=== PATIENT | female | born 1985 | race Caucasian/White ===

== ENCOUNTER 2016-10-26 00:23 | Emergency (ER) | payer MEDICAID ==
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
[2016-10-26 01:57] LABS: ABSOLUTE BASOPHILS # (AUTO) 0.1 10^3/uL (0.0-0.2); ABSOLUTE EOSINOPHILS # (AUTO) 0.3 10^3/uL (0.0-0.6); ABSOLUTE LYMPHOCYTES (AUTO) 2.6 10^3/uL (0.5-4.7); ABSOLUTE MONOCYTES (AUTO) 0.4 10^3/uL (0.1-1.4); ABSOLUTE NEUT (AUTO) 5.8 10^3/uL (1.7-8.2); BASOPHILS % (AUTO) 0.7 % (0-2); HEMATOCRIT 40.2 % (36.0-47.0); HEMOGLOBIN 13.7 g/dL (12.0-15.5); HGB HCT DIFFERENCE 0.9; LYMPHOCYTES % (AUTO) 28.7 % (13-45); MEAN CORPUSCULAR HEMOGLOBIN 29.2 pg (27.0-33.4); MEAN CORPUSCULAR HGB CONC 34.2 g/dL (32.0-36.0); MEAN CORPUSCULAR VOLUME 86 fl (80-97); MONOCYTES % (AUTO) 4.3 % (3-13); RED CELL DISTRIBUTION WIDTH 13.6 % (11.5-14.0); SEGMENTED NEUTROPHILS % (AUTO) 63.3 % (42-78); WHITE BLOOD COUNT 9.2 10^3/uL (4.0-10.5)
[2016-10-26 02:02] LABS: ALANINE AMINOTRANSFERASE 17 U/L (9-52); ALBUMIN 4.1 g/dL (3.5-5.0); ALKALINE PHOSPHATASE 45 U/L (38-126); ASPARTATE AMINO TRANSFERASE 13 U/L (14-36); BILIRUBIN,DIRECT 0.3 mg/dL (0.0-0.4); BILIRUBIN,TOTAL 0.4 mg/dL (0.2-1.3); BLOOD UREA NITROGEN 14 mg/dL (7-20); CALCIUM 9.2 mg/dL (8.4-10.2); CARBON DIOXIDE 25 mmol/L (22-30); CHLORIDE 106 mmol/L (98-107); CREATININE RESULT 1.44 mg/dL (0.52-1.25); GLUCOSE 107 mg/dL (75-110); POTASSIUM 3.9 mmol/L (3.6-5.0)
[2016-10-26 02:03] LABS: ANION GAP 12 (5-19); SODIUM 142.8 mmol/L (137-145)
[2016-10-26 02:07] LABS: ALCOHOL < 10 mg/dL (NONE DETECTED)
[2016-10-26 02:10] LABS: APPEARANCE,URINE CLEAR; BILIRUBIN,URINE NEGATIVE (NEGATIVE); GLUCOSE, URINE NEGATIVE (NEGATIVE); KETONES,URINE NEGATIVE (NEGATIVE); LEUKOCYTE ESTERASE,URINE NEGATIVE (NEGATIVE); NITRITE,URINE NEGATIVE (NEGATIVE); PROTEIN,URINE 30 mg/dL (NEGATIVE); URINE SPECIFIC GRAVITY 1.005; UROBILINOGEN,URINE NEGATIVE mg/dL (<2.0)
[2016-10-26 02:30] LABS: URINE METHADONE SCREEN NEGATIVE; URINE OPIATES LOW NEGATIVE; URINE PHENCYCLIDINE SCREEN NEGATIVE
[2016-10-26 02:31] LABS: URINE BARBITURATES SCREEN NEGATIVE
[2016-10-26 03:02] VITALS: BP 146/89
--- NOTE | 2016-10-26 10:08 | EKG REPORT ---
SEVERITY:- OTHERWISE NORMAL ECG - SINUS BRADYCARDIA ATRIAL PREMATURE COMPLEX : Confirmed by: Cecil Rueda MD 26-Oct-2016 10:07:55
== END 2016-10-26 02:59 | disposition home or self-care (01) ==
LOC: ER 00:23
DX: F33.9 Major depressive disorder, recurrent, unspecified (principal)
CPT/HCPCS: 36415; 80053; 80307; 81001; 84703; 85025; 93005; 93010; 99285

== ENCOUNTER → 2016-11-13 | Outpatient (CLI) | payer MEDICAID, OTHER | LOC: WI 10:13 | PROVIDERS: ATTEND Nurse Practitioner Family | DX: N64.4 Mastodynia (principal) | CPT/HCPCS: 76642; G0204; 77066 ==

== ENCOUNTER → 2017-01-17 | Outpatient (CLI) | payer MEDICAID ==
--- NOTE | 2017-01-17 16:04 | RADIOLOGY REPORT (SQ) ---
EXAM DESCRIPTION: U/S RETROPERITON (RENAL/AORTA) COMPLETED DATE/TIME: 01/17/2017 2:55 pm REASON FOR STUDY: CHRONIC KIDNEY DISEASE N18.2 CHRONIC KIDNEY DISEASE, STAGE 2 (MILD) COMPARISON: None. TECHNIQUE: Dynamic and static grayscale images acquired of the kidneys and bladder and recorded on P ACS. Additional selected color Doppler and spectral images recorded. LIMITATIONS: None. FINDINGS: RIGHT KIDNEY: 15.6 cm in length, with diffuse cortical thickening and increased cortical e chogenicity. Adult polycystic kidney disease, with multiple cysts replacing the renal parenchyma. N o solid or suspicious masses. No hydronephrosis. No calcifications. LEFT KIDNEY: 16 cm in length, with diffuse cortical thickening and increased cortical echogenicity. Adult polycystic kidney disease, with multiple cysts replacing the renal parenchyma. No solid or ramos spicious masses. No hydronephrosis. No calcifications. BLADDER: No masses. Decompressed. Bilateral ureteral jets are present OTHER FINDINGS: No other significant finding. IMPRESSION: Adult polycystic kidney disease TECHNICAL DOCUMENTATION: JOB ID: [id number] [employer]- All Rights Reserved
== END ==
LOC: RAD 14:05
PROVIDERS: ATTEND Internal Medicine Nephrology
DX: N18.2 Chronic kidney disease, stage 2 (mild) (principal); Q61.2 Polycystic kidney, adult type
CPT/HCPCS: 76770

== ENCOUNTER → 2017-02-03 | Outpatient (CLI) | payer MEDICAID ==
[2017-02-03 11:59] LABS: APPEARANCE,URINE SLIGHTLY-CLOUDY; BILIRUBIN,URINE NEGATIVE (NEGATIVE); GLUCOSE, URINE NEGATIVE (NEGATIVE); KETONES,URINE NEGATIVE (NEGATIVE); LEUKOCYTE ESTERASE,URINE MODERATE (NEGATIVE); NITRITE,URINE NEGATIVE (NEGATIVE); PROTEIN,URINE 100 mg/dL (NEGATIVE); UROBILINOGEN,URINE NEGATIVE mg/dL (<2.0)
[2017-02-03 12:18] LABS: ANION GAP 13 (5-19); BLOOD UREA NITROGEN 14 mg/dL (7-20); CALCIUM 9.4 mg/dL (8.4-10.2); CARBON DIOXIDE 22 mmol/L (22-30); CHLORIDE 107 mmol/L (98-107); GLUCOSE 105 mg/dL (75-110); POTASSIUM 3.8 mmol/L (3.6-5.0); SODIUM 141.8 mmol/L (137-145)
[2017-02-03 12:35] LABS: URINE CREATININE 160.3 mg/dL (16-327); URINE PROTEIN 94.1 mg/dL (<12)
[2017-02-04 14:09] LABS: URINE PROTEIN 30.7 mg/dL (<12)
[2017-02-04 14:10] LABS: URINE CREATININE 59.7 mg/dL (16-327)
[2017-02-04 14:16] LABS: CREATININE 1.4 mg/dL (0.52-1.25)
[2017-02-05 15:38] LABS: ALBUMIN 3 3.7 g/dL (2.9-4.4); ALPHA-1-GLOBULIN 0.2 g/dL (0.0-0.4); ALPHA-2-GLOBULIN 3 0.8 g/dL (0.4-1.0); GLOBULIN TTL 3.4 g/dL (2.2-3.9); IMMUNOGLOBULIN A 144 mg/dL (87-352); IMMUNOGLOBULIN G 1136 mg/dL (700-1600); IMMUNOGLOBULIN M 146 mg/dL (26-217); MONOCLONAL-SPIKE Not Observed g/dL (Not Observed); PROTEIN TOTAL SERUM 7.1 g/dL (6.0-8.5)
== END ==
LOC: OD 10:18
PROVIDERS: ATTEND Internal Medicine Nephrology
DX: N28.9 Disorder of kidney and ureter, unspecified (principal)
CPT/HCPCS: 36415; 80048; 81001; 82570; 82575; 84156; 86320

== ENCOUNTER → 2017-09-25 | Outpatient (CLI) | payer MEDICAID ==
[2017-09-25 13:41] LABS: ANION GAP 11 (5-19); BLOOD UREA NITROGEN 18 mg/dL (7-20); CALCIUM 9.8 mg/dL (8.4-10.2); CARBON DIOXIDE 25 mmol/L (22-30); CHLORIDE 108 mmol/L (98-107); GLUCOSE 84 mg/dL (75-110); POTASSIUM 4.5 mmol/L (3.6-5.0); SODIUM 143.9 mmol/L (137-145)
[2017-09-26 09:48] LABS: UR PRO/CREAT RATIO RESULT 0.7 mg/mg (0.0-0.2); URINE CREATININE 80.8 mg/dL (16-327); URINE PROTEIN 52.6 mg/dL (<12)
== END ==
LOC: OD 12:05
PROVIDERS: ATTEND Internal Medicine Nephrology
DX: N18.3 Chronic kidney disease, stage 3 (moderate) (principal); R80.9 Proteinuria, unspecified
CPT/HCPCS: 36415; 80048; 82043; 82570; 84156

== ENCOUNTER 2017-11-01 10:57 | Emergency (ER) | payer MEDICAID ==
[2017-11-01 11:06] VITALS: BP 139/110
[2017-11-01] MEDS ORDERED: METHOCARBAMOL 500 MG TABLET PO ONE (11:34)
[2017-11-01] MEDS ORDERED: IBUPROFEN 800 MG TABLET PO ONE (11:34)
--- NOTE | 2017-11-01 11:57 | ER Document Report ---
ED Neck/Back Problem - General Chief Complaint: Neck Problem Stated Complaint: NECK PAIN, SHOULDER AND HEAD PAIN Time Seen by Provider: 11/01/17 11:11 Mode of Arrival: Ambulatory Information source: Patient Notes: 32-year-old female presents to ED for complaint of severe pain to the neck and left shoulder. She states she was moving her neck around and felt a pop on Friday. She states she went to the urgent care they gave her to shot she thinks it was Toradol and Decadron and sent her home with some muscle relaxers states she does not worry about with the medicines are she just tells takes with patellar to take. She states none of this is helping her states that shot only lasted for about 24 hours and the muscle relaxers only numb the skin did not help with her pain. She states she has been doing massages to the area using icy hot and hot and cold plaques. She states a friend had a Percocet 10 and she took half of that and then had to take the other half right away in order to have any relief. She states she has not used any ibuprofen or any anti -inflammatories except for the shot she got the first day. TRAVEL OUTSIDE OF THE [place] IN LAST 30 DAYS: No - HPI Patient complains to provider of: Neck - Left shoulder Where: Home, Indoors Onset: Sudden Timing: Waxing and waning Quality of pain: Sharp Severity: Severe Pain Level: 5 Recent injury: Possibly Associated symptoms: Upper back pain, Other - Neck and left shoulder. denies: Like prior neck/back pain, Motor loss, Numbness/tingling, Radiation to arm, Radiation to chest, Radiation to leg, Sensory loss, Sweaty, Unable to urinate, Lower back pain Exacerbated by: Movement of neck Relieved by: Nothing Similar symptoms previously: Yes Recently seen / treated by doctor: Yes - Related Data Allergies/Adverse Reactions: No Known Allergies Allergy (Verified 11/01/17 10:58) Past Medical History - General Information source: Patient - Social History Smoking Status: Current Every Day Smoker Cigarette use (# per day): Yes - Pack to pack and half Chew tobacco use (# tins/day): No Smoking Education Provided: Yes - 4 minutes Frequency of alcohol use: None Drug Abuse: None Occupation: None Lives with: Spouse/Significant other Family History: Reviewed & Not Pertinent Patient has suicidal ideation: No Patient has homicidal ideation: No - Past Medical History Cardiac Medical History: Reports: Hx Hypertension Pulmonary Medical History: Reports: Hx Bronchitis - possibly EENT Medical History: Reports: None Endocrine Medical History: Reports: Hx Hyperthyroidism Renal/ Medical History: Reports: Other - 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 stage III kidney failure genetic Malignancy Medical History: Reports: None GI Medical History: Reports: None Musculoskeltal Medical History: Denies Hx Arthritis, Reports Hx Musculoskeletal Trauma Skin Medical History: Reports None Psychiatric Medical History: Reports: Hx Anxiety, Hx Bipolar Disorder, Hx Depression Traumatic Medical History: Reports: None Infectious Medical History: Reports: None Past Surgical History: Reports: Hx Section, Hx Neurologic Surgery, Hx Thyroid Surgery - Immunizations Hx Diphtheria, Pertussis, Tetanus Vaccination: Yes - 2007 Review of Systems - Review of Systems Constitutional: No symptoms reported EENT: No symptoms reported Cardiovascular: No symptoms reported Respiratory: No symptoms reported Gastrointestinal: No symptoms reported Genitourinary: No symptoms reported Female Genitourinary: No symptoms reported Musculoskeletal: Muscle pain, Muscle stiffness, Neck pain Skin: No symptoms reported Hematologic/Lymphatic: No symptoms reported Neurological/Psychological: No symptoms reported -: Yes All other systems reviewed and negative Physical Exam - Vital signs Vitals: Temp Pulse Resp BP Pulse Ox 98.5 F 94 16 139/110 H 97 11/01/17 11:04 11/01/17 11:04 11/01/17 11:04 11/01/17 11:04 11/01/17 11:04 Interpretation: Normal - General General appearance: Appears well, Alert - HEENT Head: Normocephalic, Atraumatic Eyes: Normal Pupils: PERRL - Respiratory Respiratory status: No respiratory distress Chest status: Nontender Breath sounds: Normal Chest palpation: Normal - Cardiovascular Rhythm: Regular Heart sounds: Normal auscultation Murmur: No - Abdominal Inspection: Normal Distension: No distension Bowel sounds: Normal Tenderness: Nontender Organomegaly: No organomegaly - Back Back: Normal, Tender - To the neck and left shoulder, Vertebra tenderness - Cervical - Extremities General upper extremity: Normal inspection, Nontender, Normal color, Normal ROM , Normal temperature General lower extremity: Normal inspection, Nontender, Normal color, Normal ROM , Normal temperature, Normal weight bearing. No: Ramos's sign - Neurological Neuro grossly intact: Yes Cognition: Normal Orientation: AAOx4 Dimple Coma Scale Eye Opening: Spontaneous [place] Coma Scale Verbal: Oriented [place] Coma Scale Motor: Obeys Commands [place] Coma Scale Total: 15 Speech: Normal Motor strength normal: LUE, RUE, LLE, RLE Sensory: Normal - Psychological Associated symptoms: Normal affect, Normal mood - Skin Skin Temperature: Warm Skin Moisture: Dry Skin Color: Normal Course - Re-evaluation Re-evalutation: 11/01/17 12:27 X-ray discussed with patient. Patient has full range of motion of her shoulders. She states that her significant other told her not to move her shoulders and arms when her neck hurt and not to move her neck around because it was painful. Reinforced with patient that she needed to do range of motion of the muscles would get stiff and hurt more. Patient was given prescriptions for ibuprofen and Robaxin. She was encouraged to use ice and warm packs and do range of motion for shoulders and neck and to follow-up with orthopedics if it continues to hurt. Patient verbalized understanding and agreement with treatment plan. - Vital Signs Vital signs: Temp Pulse Resp BP Pulse Ox 98.5 F 94 16 139/110 H 97 11/01/17 11:04 11/01/17 11:04 11/01/17 11:04 11/01/17 11:04 11/01/17 11:04 - Diagnostic Test Radiology reviewed: Image reviewed, Reports reviewed Discharge - Discharge Clinical Impression: Cervical muscle strain Qualifiers: Encounter type: initial encounter Qualified Code(s): S16.1XXA - Strain of muscle, fascia and tendon at neck level, initial encounter Shoulder pain, left Qualifiers: Chronicity: acute Qualified Code(s): M25.512 - Pain in left shoulder Condition: Stable Disposition: HOME, SELF-CARE Additional Instructions: NECK INJURY (CERVICAL STRAIN): You have a neck strain. This is an injury to the muscles and ligaments in the neck. There is no evidence of a fracture of the neck bones. Also, no injury to the spinal cord or nerve roots was detected. Usually, stiffness and pain INCREASE for the first 24-48 hours after the injury. The pain will gradually resolve and the neck will become more mobile. Most patients are back at work or school within a few days. Typically, complete healing takes about two or three weeks. The usual initial treatment is rest and cold packs. A neck collar may be placed to keep the muscles of the neck at rest. Antiinflammatory and muscle relaxing medication are often used to reduce the spasm and irritation. You should call the doctor, or go to the hospital, if you develop numbness or weakness in any extremity, problems with your bladder or bowel, or pain radiating down the arms. Exercise Program for the Shoulder Since the shoulder moves in so many directions, the joint attachment is weak. Muscles provide most of the stability to the shoulder. You must exercise your shoulder to prevent painful instability or stiffening. PASSIVE - These may be begun within a few days of the injury. While standing, lean forward, allowing the arm to hang down towards the floor. Move the arm in small circles while slowly twisting your chest towards and away from the hanging arm. Do this for one minute. ACTIVE - These may be performed when the doctor gives permission. Begin with the arms at the sides. Raise the arms forward (shoulder's width apart) until they reach shoulder level. Then slowly swing both arms back until they are aiming straight out away from each other. Then bring them forward again, and finally, lower them to your sides. Repeat 20 to 30 times. As you improve, put weights in your hands for the exercise. Start with one pound, and work up to 10 pounds. Never use more than is comfortable. Athletes may work up to 30 pounds. MUSCLE STRAIN: You have strained a muscle -- torn the fibers within the muscle. This often occurs with strenuous exertion, or during an injury that suddenly stretches the muscle. The seriousness of a strain varies. Some strains heal within days, others cause problems for months. X-rays cannot show a muscle strain. X-rays are taken only if symptoms suggest that a fracture could be present. The usual treatment of a muscle strain is rest and ice packs. Sometimes, a sling, splint, or crutches may be necessary to rest the muscle. The muscle can be used again once pain subsides. Severe strains require a special exercise and stretching program to prevent permanent stiffness and disability. Your doctor will advise you if this will be necessary. Call the doctor immediately if pain or swelling becomes severe, or if numbness or discoloration develop. USE OF TYLENOL (ACETAMINOPHEN): Acetaminophen may be taken for pain relief or fever control. It's much safer than aspirin, offering a wider range of "safe" dosages. It is safe during . Some brand names are Tylenol, Panadol, Datril, Anacin 3, Tempra, and Liquiprin. Acetaminophen can be repeated every four hours. The following are maximum recommended dosages: WEIGHT Dose Drops Elixir Chewable( 80mg) (LBS.) drprs=droppers tsp=teaspoon 6 40 mg 0.4 ml (1/2) 6-11 80 mg 0.8 ml (full) tsp 1 tab 12-16 120 mg 1 1/2 drprs 3/4 tsp 1 1/2 tabs 17-23 160 mg 2 drprs 1 tsp 2 tabs 24-30 240 mg 3 drprs 1 1/2 tsp 3 tabs 30-35 320 mg 2 tsp 4 tabs 36-41 360 mg 2 1/4 tsp 4 1/2 tabs 42-47 400 mg 2 1/2 tsp 5 tabs 48-53 480 mg 3 tsp 6 tabs 54-59 520 mg 3 1/4 tsp 6 1/2 tabs 60-64 560 mg 3 1/2 tsp 7 tabs 65-70 600 mg 3 3/4 tsp 7 1/2 tabs 71-76 640 mg 4 tsp 8 tabs 77-82 720 mg 4 1/2 tsp 9 tabs 83-88 800 mg 5 tsp 10 tabs >89 pounds or adults 650 mg to 900 mg Acetaminophen can be repeated every four hours. Maximum dose not to exceed 4000 mg a day. These maximum recommended dosages are slightly higher than the dosages written on the product container, but these dosages are very safe and below the toxic dosage for acetaminophen. Ibuprofen Ibuprofen is an excellent, safe drug for pain control. In addition, it has potent antiinflammatory effects which are beneficial, especially in the treatment of injuries, arthritis, or tendonitis. It's best to take ibuprofen with food. Persons with ulcer disease or allergy to aspirin should notify their physician of this before taking ibuprofen. Take the medication exactly as prescribed. Don't take additional doses unless instructed to do so by your doctor. If you develop wheezing, shortness of breath, hives, faintness, stomach pain, vomiting, or dark black stools, return for re-evaluation at once. ICE PACKS: Apply ice packs frequently against the painful area. Many different schedules are recommended, such as "20 minutes on, 20 minutes off" or "one hour ice, two hours rest." If you need to work, you may need to go longer between ice treatments. You should plan to have the area ice packed AT LEAST one fourth of the time. The ice should be applied over the wrap, tape, or splint, or over a layer of cloth -- not directly against the skin. Some ice bags have a built-in cloth and can be put directly on the skin. WARM PACKS: After approximately two days, apply gentle heat (such as a heating pad or hot water bottle) for about 20 to 30 minutes about every two hours -- at least four times daily. Warmth and elevation will help you make a more rapid recovery , and will ease the pain considerably. Do not use HOT heat, and never apply heat for longer than 30 minutes. The continuous heat can invisibly damage skin and muscles -- even when no burn is seen on the surface. Damaged muscles can make you MORE sore. MUSCLE RELAXERS: Muscle relaxing medications are usually prescribed for acute muscle spasm or injury to the neck and back. They are often combined with antiinflammatory pain medication for increased relief. You may stop the muscle relaxer when the pain and stiffness have improved. Start the medication again if spasms recur. Muscle relaxers may cause drowsiness, especially with the first dose. Do not operate machinery or drive while under the effects of the medication. Most muscle relaxers last up to 24 hours. Do not combine the medication with alcohol. FOLLOW-UP CARE: If you have been referred to a physician for follow-up care, call the physician s office for an appointment as you were instructed or within the next two days. If you experience worsening or a significant change in your symptoms, notify the physician immediately or return to the Emergency Department at any time for re-evaluation. Prescriptions: Ibuprofen 600 mg PO Q8HP PRN #20 tablet PRN Reason: Methocarbamol [Robaxin 500 mg Tablet] 500 mg PO BID #14 tablet Forms: Elevated Blood Pressure, Smoking Cessation Education Referrals: TIFFANY BULLOCK MD [ACTIVE STAFF] - Follow up as needed
--- NOTE | 2017-11-01 11:58 | RADIOLOGY REPORT (SQ) ---
EXAM DESCRIPTION: CT CERVICAL SPINE WITHOUT COMPLETED DATE/TIME: 11/01/2017 11:50 am REASON FOR STUDY: Popped her neck accidentally and has continued vinod COMPARISON: None. TECHNIQUE: Axial images acquired through the cervical spine without intravenous contrast. Images re viewed with lung, soft tissue and bone windows. Reconstructed coronal and sagittal MPR images review ed. Images stored on PACS. All CT scanners at this facility use dose modulation, iterative reconstruction, and/or weight based d osing when appropriate to reduce radiation dose to as low as reasonably achievable (ALARA). [facility]: Dose Right [facility]: CareDose [facility]: Dose Right [facility]: Teradose 4D [facility]: Smart Popbasic RADIATION DOSE: CT Rad equipment meets quality standard of care and radiation dose reduction techniq ues were employed. CTDIvol: 17.6 mGy. DLP: 380 mGy-cm. mGy. LIMITATIONS: None. FINDINGS: ALIGNMENT: Anatomic. MINERALIZATION: Normal. VERTEBRAL BODIES: No fractures or dislocation. DISCS: No significant disc disease. FACETS, LATERAL MASSES, POSTERIOR ELEMENTS: No fractures. No dislocation. No acute findings. HARDWARE: None in the spine. VISUALIZED RIBS: No fractures. LUNG APICES AND SOFT TISSUES: No significant or acute findings. OTHER: Status post thyroidectomy. IMPRESSION: NO ACUTE OR SIGNIFICANT FINDINGS IN THE CERVICAL SPINE. TECHNICAL DOCUMENTATION: JOB ID: [id number] Quality ID # [id number]: Final reports with documentation of one or more dose reduction techniques (e.g., Au tomated exposure control, adjustment of the mA and/or kV according to patient size, use of iterative reconstruction technique) 2010 [employer]- All Rights Reserved Reading location - IP/workstation name: [email or web address]
== END 2017-11-01 12:58 | disposition home or self-care (01) ==
LOC: ER 10:57
DX: S16.1XXA Strain of muscle, fascia and tendon at neck level, initial encounter (principal); M54.2 Cervicalgia; M25.512 Pain in left shoulder; R51 Headache; M54.6 Pain in thoracic spine; X58.XXXA Exposure to other specified factors, initial encounter; F17.210 Nicotine dependence, cigarettes, uncomplicated; I10 Essential (primary) hypertension
CPT/HCPCS: 99406; 99283; 72125; J3490 ×2

== ENCOUNTER → 2017-11-10 | Outpatient (CLI) | payer MEDICAID ==
[2017-11-10 14:46] LABS: ANION GAP 13 (5-19); BLOOD UREA NITROGEN 11 mg/dL (7-20); CALCIUM 9.5 mg/dL (8.4-10.2); CARBON DIOXIDE 23 mmol/L (22-30); CHLORIDE 107 mmol/L (98-107); GLUCOSE 92 mg/dL (75-110); SODIUM 143.2 mmol/L (137-145)
[2017-11-12 16:46] LABS: UR PRO/CREAT RATIO RESULT 0.5 mg/mg (0.0-0.2); URINE CREATININE 76.6 mg/dL (16-327); URINE PROTEIN 40.1 mg/dL (<12)
== END ==
LOC: OD 13:30
PROVIDERS: ATTEND Internal Medicine Nephrology
DX: N18.3 Chronic kidney disease, stage 3 (moderate) (principal); R80.9 Proteinuria, unspecified
CPT/HCPCS: 36415; 80048; 82570; 84156

== ENCOUNTER → 2018-01-05 | Outpatient (CLI) | payer MEDICAID ==
[2018-01-05 15:07] LABS: UR PRO/CREAT RATIO RESULT 0.7 mg/mg (0.0-0.2); URINE CREATININE 81.5 mg/dL (16-327); URINE PROTEIN 57.1 mg/dL (<12)
[2018-01-05 15:20] LABS: ANION GAP 9 (5-19); BLOOD UREA NITROGEN 14 mg/dL (7-20); CALCIUM 9.5 mg/dL (8.4-10.2); CARBON DIOXIDE 27 mmol/L (22-30); CHLORIDE 108 mmol/L (98-107); GLUCOSE 70 mg/dL (75-110); POTASSIUM 4.3 mmol/L (3.6-5.0); SODIUM 144.2 mmol/L (137-145)
== END ==
LOC: OD 13:40
PROVIDERS: ATTEND Internal Medicine Nephrology
DX: N18.3 Chronic kidney disease, stage 3 (moderate) (principal); R80.9 Proteinuria, unspecified
CPT/HCPCS: 36415; 80048; 82570; 84156

== ENCOUNTER → 2018-02-18 | Outpatient (CLI) | payer MEDICAID ==
--- NOTE | 2018-02-18 14:18 | RADIOLOGY REPORT (SQ) ---
EXAM DESCRIPTION: CHEST PA/LATERAL COMPLETED DATE/TIME: 02/18/2018 2:10 pm REASON FOR STUDY: COUGH COMPARISON: 03/03/2009. EXAM PARAMETERS: NUMBER OF VIEWS: two views TECHNIQUE: Digital Frontal and Lateral radiographic views of the chest acquired. RADIATION DOSE: NA LIMITATIONS: none FINDINGS: LUNGS AND PLEURA: No opacities, masses or pneumothorax. No pleural effusion. MEDIASTINUM AND HILAR STRUCTURES: No masses or contour abnormalities. HEART AND VASCULAR STRUCTURES: Heart normal size. No evidence for failure. BONES: No acute findings. HARDWARE: None in the chest. OTHER: No other significant finding. IMPRESSION: NO SIGNIFICANT RADIOGRAPHIC FINDING IN THE CHEST. TECHNICAL DOCUMENTATION: JOB ID: [id number] [email or web address]- All Rights Reserved Reading location - IP/workstation name: [email or web address]
== END ==
LOC: OD 14:01
PROVIDERS: ATTEND Nurse Practitioner Family
DX: R05 Cough (principal)
CPT/HCPCS: 71046

== ENCOUNTER → 2018-04-08 | Outpatient (CLI) | payer MEDICAID ==
[2018-04-08 12:39] LABS: ABSOLUTE EOSINOPHILS # (AUTO) 0.2 10^3/uL (0.0-0.6); ABSOLUTE LYMPHOCYTES (AUTO) 2.1 10^3/uL (0.5-4.7); ABSOLUTE MONOCYTES (AUTO) 0.4 10^3/uL (0.1-1.4); ABSOLUTE NEUT (AUTO) 5.2 10^3/uL (1.7-8.2); BASOPHILS % (AUTO) 0.6 % (0-2); EOSINOPHILS % (AUTO) 2.3 % (0-6); HEMATOCRIT 39.9 % (36.0-47.0); HEMOGLOBIN 13.8 g/dL (12.0-15.5); LYMPHOCYTES % (AUTO) 26.5 % (13-45); MEAN CORPUSCULAR HEMOGLOBIN 29.2 pg (27.0-33.4); MEAN CORPUSCULAR HGB CONC 34.6 g/dL (32.0-36.0); MEAN CORPUSCULAR VOLUME 84 fl (80-97); MONOCYTES % (AUTO) 5.2 % (3-13); PLATELET COUNT 180 10^3/uL (150-450); RED BLOOD COUNT 4.73 10^6/uL (3.72-5.28); RED CELL DISTRIBUTION WIDTH 13.8 % (11.5-14.0); SEGMENTED NEUTROPHILS % (AUTO) 65.4 % (42-78); TOTAL CELLS COUNTED % (AUTO) 100 %; WHITE BLOOD COUNT 7.9 10^3/uL (4.0-10.5)
[2018-04-08 12:50] LABS: APPEARANCE,URINE SLIGHTLY-CLOUDY; BILIRUBIN,URINE NEGATIVE (NEGATIVE); COLOR,URINE STRAW; GLUCOSE, URINE NEGATIVE (NEGATIVE); KETONES,URINE NEGATIVE (NEGATIVE); LEUKOCYTE ESTERASE,URINE NEGATIVE (NEGATIVE); NITRITE,URINE NEGATIVE (NEGATIVE); PROTEIN,URINE NEGATIVE (NEGATIVE); URINE SPECIFIC GRAVITY 1.004; UROBILINOGEN,URINE NEGATIVE mg/dL (<2.0)
[2018-04-08 13:05] LABS: ALBUMIN 4.2 g/dL (3.5-5.0); ANION GAP 9 (5-19); BLOOD UREA NITROGEN 18 mg/dL (7-20); CALCIUM 9.4 mg/dL (8.4-10.2); CARBON DIOXIDE 24 mmol/L (22-30); CHLORIDE 107 mmol/L (98-107); GLUCOSE 80 mg/dL (75-110); POTASSIUM 4.7 mmol/L (3.6-5.0); SODIUM 139.7 mmol/L (137-145)
[2018-04-08 13:09] LABS: UR PRO/CREAT RATIO RESULT 0.8 mg/mg (0.0-0.2); URINE CREATININE 35.4 mg/dL (16-327)
== END ==
LOC: OD 11:41
PROVIDERS: ATTEND Internal Medicine Nephrology
DX: Q61.2 Polycystic kidney, adult type (principal); N18.3 Chronic kidney disease, stage 3 (moderate); R80.9 Proteinuria, unspecified
CPT/HCPCS: 36415; 80048; 81001; 82040; 82306; 82570; 83970; 84156; 85025

== ENCOUNTER → 2018-05-28 | Outpatient (CLI) | payer MEDICAID ==
[2018-05-28 12:38] LABS: APPEARANCE,URINE CLEAR; BILIRUBIN,URINE NEGATIVE (NEGATIVE); COLOR,URINE STRAW; GLUCOSE, URINE NEGATIVE (NEGATIVE); KETONES,URINE NEGATIVE (NEGATIVE); LEUKOCYTE ESTERASE,URINE NEGATIVE (NEGATIVE); NITRITE,URINE NEGATIVE (NEGATIVE); PROTEIN,URINE 30 mg/dL (NEGATIVE); URINE SPECIFIC GRAVITY 1.009; UROBILINOGEN,URINE NEGATIVE mg/dL (<2.0)
[2018-05-28 13:00] LABS: UR PRO/CREAT RATIO RESULT 0.6 mg/mg (0.0-0.2); URINE CREATININE 69.4 mg/dL (16-327); URINE PROTEIN 43.8 mg/dL (<12)
[2018-05-28 13:08] LABS: ANION GAP 12 (5-19); BLOOD UREA NITROGEN 21 mg/dL (7-20); CALCIUM 9.5 mg/dL (8.4-10.2); CARBON DIOXIDE 26 mmol/L (22-30); CHLORIDE 105 mmol/L (98-107); GLUCOSE 85 mg/dL (75-110); PHOSPHORUS 4.5 mg/dL (2.5-4.5); POTASSIUM 4.2 mmol/L (3.6-5.0); SODIUM 143.2 mmol/L (137-145)
== END ==
LOC: OD 12:02
PROVIDERS: ATTEND Internal Medicine Nephrology
DX: N18.3 Chronic kidney disease, stage 3 (moderate) (principal); Q61.2 Polycystic kidney, adult type; E21.3 Hyperparathyroidism, unspecified
CPT/HCPCS: 36415; 80048; 81001; 82570; 83970; 84100; 84156

== ENCOUNTER → 2018-08-25 | Outpatient (CLI) | payer MEDICAID ==
[2018-08-25 13:16] LABS: ANION GAP 12 (5-19); BLOOD UREA NITROGEN 18 mg/dL (7-20); CALCIUM 9.9 mg/dL (8.4-10.2); CARBON DIOXIDE 26 mmol/L (22-30); CHLORIDE 104 mmol/L (98-107); GLUCOSE 88 mg/dL (75-110); POTASSIUM 4.3 mmol/L (3.6-5.0); SODIUM 141.9 mmol/L (137-145)
[2018-08-25 13:24] LABS: UR PRO/CREAT RATIO RESULT 0.7 mg/mg (0.0-0.2); URINE CREATININE 94.1 mg/dL (16-327); URINE PROTEIN 70.4 mg/dL (<12)
== END ==
LOC: OD 12:11
PROVIDERS: ATTEND Internal Medicine Nephrology
DX: I12.9 Hypertensive chronic kidney disease with stage 1 through stage 4 chronic kidney disease, or unspecified chronic kidney disease (principal); N18.3 Chronic kidney disease, stage 3 (moderate)
CPT/HCPCS: 36415; 80048; 82570; 83970; 84156

== ENCOUNTER → 2018-11-23 | Outpatient (CLI) | payer MEDICAID ==
[2018-11-23 12:12] LABS: FREE T4 (FREE THYROXINE) 1.07 ng/dL (0.78-2.19)
[2018-11-23 12:26] LABS: THYROID STIMULATING HORMONE 4.9 uIU/mL (0.47-4.68)
== END ==
LOC: OD 10:47
PROVIDERS: ATTEND Nurse Practitioner Family
DX: E03.9 Hypothyroidism, unspecified (principal)
CPT/HCPCS: 36415; 84439; 84443; 84480

== ENCOUNTER → 2018-12-16 | Outpatient (CLI) | payer MEDICAID ==
[2018-12-16 15:23] LABS: ANION GAP 13 (5-19); BLOOD UREA NITROGEN 16 mg/dL (7-20); CARBON DIOXIDE 22 mmol/L (22-30); CHLORIDE 110 mmol/L (98-107); GLUCOSE 72 mg/dL (75-110); SODIUM 144.8 mmol/L (137-145)
[2018-12-16 15:45] LABS: UR PRO/CREAT RATIO RESULT 0.5 mg/mg (0.0-0.2); URINE CREATININE 132.1 mg/dL (16-327); URINE PROTEIN 62.9 mg/dL (<12)
== END ==
LOC: OD 14:09
PROVIDERS: ATTEND Internal Medicine Nephrology
DX: I12.9 Hypertensive chronic kidney disease with stage 1 through stage 4 chronic kidney disease, or unspecified chronic kidney disease (principal); N18.3 Chronic kidney disease, stage 3 (moderate)
CPT/HCPCS: 36415; 80048; 82570; 84156

== ENCOUNTER → 2019-05-26 | Outpatient (CLI) | payer MEDICAID ==
[2019-05-26 12:42] LABS: ABSOLUTE EOSINOPHILS # (AUTO) 0.2 10^3/uL (0.0-0.6); ABSOLUTE MONOCYTES (AUTO) 0.3 10^3/uL (0.1-1.4); ABSOLUTE NEUT (AUTO) 4.6 10^3/uL (1.7-8.2); BASOPHILS % (AUTO) 0.6 % (0-2); EOSINOPHILS % (AUTO) 3.2 % (0-6); HEMATOCRIT 39.7 % (36.0-47.0); HEMOGLOBIN 13.5 g/dL (12.0-15.5); LYMPHOCYTES % (AUTO) 27.4 % (13-45); MEAN CORPUSCULAR HEMOGLOBIN 28.2 pg (27.0-33.4); MEAN CORPUSCULAR HGB CONC 33.9 g/dL (32.0-36.0); MEAN CORPUSCULAR VOLUME 83 fl (80-97); MONOCYTES % (AUTO) 4.6 % (3-13); PLATELET COUNT 231 10^3/uL (150-450); RED BLOOD COUNT 4.77 10^6/uL (3.72-5.28); RED CELL DISTRIBUTION WIDTH 13.8 % (11.5-14.0); SEGMENTED NEUTROPHILS % (AUTO) 64.2 % (42-78); TOTAL CELLS COUNTED % (AUTO) 100 %; WHITE BLOOD COUNT 7.2 10^3/uL (4.0-10.5)
[2019-05-26 12:52] LABS: APPEARANCE,URINE CLEAR; BILIRUBIN,URINE NEGATIVE (NEGATIVE); COLOR,URINE YELLOW; GLUCOSE, URINE NEGATIVE (NEGATIVE); KETONES,URINE NEGATIVE (NEGATIVE); LEUKOCYTE ESTERASE,URINE NEGATIVE (NEGATIVE); NITRITE,URINE NEGATIVE (NEGATIVE); PROTEIN,URINE NEGATIVE (NEGATIVE); URINE SPECIFIC GRAVITY 1.009; UROBILINOGEN,URINE NEGATIVE mg/dL (<2.0)
[2019-05-26 13:11] LABS: ALBUMIN 4.3 g/dL (3.5-5.0); ALKALINE PHOSPHATASE 48 U/L (38-126); ANION GAP 8 (5-19); ASPARTATE AMINO TRANSFERASE 19 U/L (14-36); BILIRUBIN,DIRECT 0.1 mg/dL (0.0-0.4); BILIRUBIN,TOTAL 0.4 mg/dL (0.2-1.3); BLOOD UREA NITROGEN 17 mg/dL (7-20); CALCIUM 9.6 mg/dL (8.4-10.2); CARBON DIOXIDE 28 mmol/L (22-30); CHLORIDE 102 mmol/L (98-107); GLUCOSE 73 mg/dL (75-110); PHOSPHORUS 4.9 mg/dL (2.5-4.5); POTASSIUM 3.9 mmol/L (3.6-5.0); TOTAL PROTEIN 7.4 g/dL (6.3-8.2)
[2019-05-26 13:16] LABS: UR PRO/CREAT RATIO RESULT 0.3 mg/mg (0.0-0.2); URINE CREATININE 85.6 mg/dL (16-327)
== END ==
LOC: OD 11:52
PROVIDERS: ATTEND Internal Medicine Nephrology
DX: N18.3 Chronic kidney disease, stage 3 (moderate) (principal); Q61.2 Polycystic kidney, adult type; R80.1 Persistent proteinuria, unspecified
CPT/HCPCS: 36415; 80053; 81001; 82306; 82570; 83735; 83970; 84100; 84156; 85025

== ENCOUNTER → 2020-01-07 | Outpatient (CLI) | payer MEDICAID ==
[2020-01-07 14:34] LABS: ABSOLUTE EOSINOPHILS # (AUTO) 0.1 10^3/uL (0.0-0.6); ABSOLUTE LYMPHOCYTES (AUTO) 1.2 10^3/uL (0.5-4.7); ABSOLUTE MONOCYTES (AUTO) 0.3 10^3/uL (0.1-1.4); ABSOLUTE NEUT (AUTO) 4.1 10^3/uL (1.7-8.2); BASOPHILS % (AUTO) 0.8 % (0-2); HEMATOCRIT 36.2 % (36.0-47.0); HEMOGLOBIN 12.6 g/dL (12.0-15.5); LYMPHOCYTES % (AUTO) 21.2 % (13-45); MEAN CORPUSCULAR HEMOGLOBIN 28.6 pg (27.0-33.4); MEAN CORPUSCULAR HGB CONC 34.8 g/dL (32.0-36.0); MEAN CORPUSCULAR VOLUME 82 fl (80-97); MONOCYTES % (AUTO) 5.7 % (3-13); PLATELET COUNT 177 10^3/uL (150-450); RED BLOOD COUNT 4.41 10^6/uL (3.72-5.28); RED CELL DISTRIBUTION WIDTH 14.6 % (11.5-14.0); SEGMENTED NEUTROPHILS % (AUTO) 70.3 % (42-78); TOTAL CELLS COUNTED % (AUTO) 100 %; WHITE BLOOD COUNT 5.8 10^3/uL (4.0-10.5)
[2020-01-07 14:39] LABS: APPEARANCE,URINE CLEAR; BILIRUBIN,URINE NEGATIVE (NEGATIVE); COLOR,URINE YELLOW; GLUCOSE, URINE NEGATIVE (NEGATIVE); KETONES,URINE NEGATIVE (NEGATIVE); LEUKOCYTE ESTERASE,URINE NEGATIVE (NEGATIVE); NITRITE,URINE NEGATIVE (NEGATIVE); PROTEIN,URINE NEGATIVE (NEGATIVE); URINE SPECIFIC GRAVITY 1.008; UROBILINOGEN,URINE NEGATIVE mg/dL (<2.0)
[2020-01-07 14:50] LABS: ALBUMIN 4.2 g/dL (3.5-5.0); ANION GAP 7 (5-19); BLOOD UREA NITROGEN 15 mg/dL (7-20); CALCIUM 9.5 mg/dL (8.4-10.2); CARBON DIOXIDE 24 mmol/L (22-30); CHLORIDE 106 mmol/L (98-107); GLUCOSE 81 mg/dL (75-110); PHOSPHORUS 3.2 mg/dL (2.5-4.5); POTASSIUM 3.7 mmol/L (3.6-5.0)
[2020-01-07 15:08] LABS: UR PRO/CREAT RATIO RESULT 0.3 mg/mg (0.0-0.2); URINE CREATININE 83.7 mg/dL (16-327); URINE PROTEIN 28.3 mg/dL (<12)
== END ==
LOC: OD 14:03
PROVIDERS: ATTEND Internal Medicine Nephrology
DX: I12.9 Hypertensive chronic kidney disease with stage 1 through stage 4 chronic kidney disease, or unspecified chronic kidney disease (principal); N18.3 Chronic kidney disease, stage 3 (moderate); Q61.2 Polycystic kidney, adult type; R80.9 Proteinuria, unspecified
CPT/HCPCS: 36415; 80069; 81001; 82306; 82570; 83970; 84156; 85025

== ENCOUNTER 2020-01-14 11:20 | Emergency (ER) | payer MEDICAID ==
--- NOTE | 2020-01-14 12:53 | ER Document Report ---
ED Medical Screen (RME) - General Stated Complaint: LEFT LEG POSSIBLE INSECT BITE Time Seen by Provider: 01/14/20 12:45 Primary Care Provider: LYRIC RODRIGUEZ MD [Primary Care Provider] - Follow up as needed TRAVEL OUTSIDE OF THE [place] IN LAST 30 DAYS: No - HPI Notes: 01/14/20 12:50 34-year-old female presents emergency room for complaints of pain to her left lower extremity from a bug bite that she sustained proximately 4 days ago. Was seen by her PCP 2 days ago and they placed her on she thinks Bactrim and Keflex, has only had 4 doses of each. Reports pain is 3 out of 5, throbbing sharp and s tabbing while eating cheetos. states she is unable to bear full weight in a wheelchair currently. Worse with time, nothing makes better. denies cp, sob, n/v/d. I have greeted and performed a rapid initial assessment of this patient. A comprehensive ED assessment and evaluation of the patient, analysis of test results and completion of the medical decision making process will be conducted by additional ED providers. PHYSICAL EXAMINATION: NECK: Normal range of motion CV: s1, s2 regular LUNGS: No respiratory distress Musculoskeletal: Normal range of motion NEUROLOGICAL: Normal speech, in wheelchair SKIN: Warm, Dry, normal turgor, no rashes or lesions noted. Left lower extremity with [id number] area of erythema, induration warmth to touch with fluctuance at center to anterior aspect of tibia-fibula. No surrounding erythema, induration or swelling. Cap refill less than 3 seconds, DTR +2 bilateral lower extremities equally - Related Data Allergies/Adverse Reactions: No Known Allergies Allergy (Verified 01/14/20 12:46) Past Medical History - Past Medical History Cardiac Medical History: Reports: Hx Hypertension Denies: Hx Heart Attack Pulmonary Medical History: Reports: Hx Bronchitis - possibly Denies: Hx Asthma, Hx COPD, Hx Pneumonia Neurological Medical History: Denies: Hx Seizures Endocrine Medical History: Reports: Hx Hyperthyroidism Renal/ Medical History: Denies: Hx Peritoneal Dialysis Musculoskeltal Medical History: Denies Hx Arthritis, Reports Hx Musculoskeletal Trauma Psychiatric Medical History: Reports: Hx Anxiety, Hx Bipolar Disorder, Hx Depression Past Surgical History: Reports: Hx Section, Hx Neurologic Surgery, Hx Thyroid Surgery - Immunizations Hx Diphtheria, Pertussis, Tetanus Vaccination: Yes - 2007 Physical Exam - Vital signs Vitals: Temp Pulse Resp BP Pulse Ox 97.7 F 91 14 98/82 L 98 01/14/20 11:28 01/14/20 11:28 01/14/20 11:28 01/14/20 11:28 01/14/20 11:28 Course - Vital Signs Vital signs: Temp Pulse Resp BP Pulse Ox 97.7 F 91 14 98/82 L 98 01/14/20 11:28 01/14/20 11:28 01/14/20 11:28 01/14/20 11:28 01/14/20 11:28 Doctor's Discharge - Discharge Referrals: LYRIC RODRIGUEZ MD [Primary Care Provider] - Follow up as needed
[2020-01-14 13:42] LABS: ABSOLUTE EOSINOPHILS # (AUTO) 0.2 10^3/uL (0.0-0.6); ABSOLUTE LYMPHOCYTES (AUTO) 1.7 10^3/uL (0.5-4.7); ABSOLUTE MONOCYTES (AUTO) 0.4 10^3/uL (0.1-1.4); ABSOLUTE NEUT (AUTO) 6.9 10^3/uL (1.7-8.2); BASOPHILS % (AUTO) 0.5 % (0-2); EOSINOPHILS % (AUTO) 1.9 % (0-6); HEMOGLOBIN 13.3 g/dL (12.0-15.5); LYMPHOCYTES % (AUTO) 18.8 % (13-45); MEAN CORPUSCULAR HEMOGLOBIN 28.5 pg (27.0-33.4); MEAN CORPUSCULAR HGB CONC 34.1 g/dL (32.0-36.0); MEAN CORPUSCULAR VOLUME 84 fl (80-97); MONOCYTES % (AUTO) 4.1 % (3-13); PLATELET COUNT 204 10^3/uL (150-450); RED BLOOD COUNT 4.68 10^6/uL (3.72-5.28); RED CELL DISTRIBUTION WIDTH 14.8 % (11.5-14.0); SEGMENTED NEUTROPHILS % (AUTO) 74.7 % (42-78); TOTAL CELLS COUNTED % (AUTO) 100 %; WHITE BLOOD COUNT 9.3 10^3/uL (4.0-10.5)
[2020-01-14 14:08] LABS: ALBUMIN 4.2 g/dL (3.5-5.0); ALKALINE PHOSPHATASE 49 U/L (38-126); ANION GAP 6 (5-19); ASPARTATE AMINO TRANSFERASE 16 U/L (14-36); BILIRUBIN,TOTAL 0.3 mg/dL (0.2-1.3); BLOOD UREA NITROGEN 13 mg/dL (7-20); CALCIUM 9.4 mg/dL (8.4-10.2); CARBON DIOXIDE 24 mmol/L (22-30); CHLORIDE 107 mmol/L (98-107); GLUCOSE 84 mg/dL (75-110); POTASSIUM 4.3 mmol/L (3.6-5.0); TOTAL PROTEIN 7.3 g/dL (6.3-8.2)
[2020-01-14] MEDS ORDERED: LIDOCAINE 1% INJ-PF (10 MG/ML) 30 ML SDV INJ ONE (14:56)
--- NOTE | 2020-01-14 16:05 | ER Document Report ---
ED General - General Chief Complaint: Leg Pain Stated Complaint: LEFT LEG POSSIBLE INSECT BITE Time Seen by Provider: 01/14/20 12:45 Primary Care Provider: LYRIC RODRIGUEZ MD [ACTIVE STAFF] - Follow up as needed TRAVEL OUTSIDE OF THE [place] IN LAST 30 DAYS: No - HPI Notes: Chief complaint: Redness and swelling left lower leg HPI: 34-year-old female presenting to emergency department for complaints of pain to her left lower extremity from a bug bite that she sustained about 4 days ago. Patient reports she was seen by her PCP 2 days ago and they placed her on oral Bactrim and Keflex. Reports current pain level 8/10. States she is unable to bear full weight due to discomfort. Denies fever, chills, nausea or vomiting. - Related Data Allergies/Adverse Reactions: No Known Allergies Allergy (Verified 01/14/20 12:46) Past Medical History - General Information source: Patient, Friend - Social History Smoking Status: Current Every Day Smoker Chew tobacco use (# tins/day): No Frequency of alcohol use: Rare Drug Abuse: None Family History: Reviewed & Not Pertinent Patient has homicidal ideation: No - Past Medical History Cardiac Medical History: Reports: Hx Hypertension Denies: Hx Heart Attack Pulmonary Medical History: Reports: Hx Bronchitis - possibly Denies: Hx Asthma, Hx COPD, Hx Pneumonia Neurological Medical History: Denies: Hx Seizures Endocrine Medical History: Reports: Hx Hyperthyroidism Renal/ Medical History: Reports: Hx Renal Insufficiency. Denies: Hx Peritoneal Dialysis Musculoskeletal Medical History: Denies Hx Arthritis, Reports Hx Musculoskeletal Trauma Psychiatric Medical History: Reports: Hx Anxiety, Hx Bipolar Disorder, Hx Depression Past Surgical History: Reports: Hx Section, Hx Neurologic Surgery, Hx Thyroid Surgery - Immunizations Hx Diphtheria, Pertussis, Tetanus Vaccination: Yes - 2007 Review of Systems - Review of Systems Notes: Constitutional: Negative for fever. HENT: Negative for sore throat. Eyes: Negative for visual changes. Cardiovascular: Negative for chest pain. Respiratory: Negative for shortness of breath. Gastrointestinal: Negative for abdominal pain, vomiting or diarrhea. Genitourinary: Negative for dysuria. Musculoskeletal: Negative for back pain. Skin: As per HPI. Neurological: Negative for headaches, weakness or numbness. 10 point ROS negative except as marked above and in HPI. Physical Exam - Vital signs Vitals: Temp Pulse Resp BP Pulse Ox 97.7 F 91 14 98/82 L 98 01/14/20 11:28 01/14/20 11:28 01/14/20 11:28 01/14/20 11:28 01/14/20 11:28 - Notes Notes: GENERAL: Female patient approximately stated age appearing moderately uncomfortable. SKIN: Good turgor no rashes. HEAD: Normocephalic atraumatic. EYES: PERRLA. EOMI. Conjunctivae and sclerae clear. EARS: CANALS AND TMS CLEAR. NOSE: CLEAR. MOUTH: Moist mucosa. Good dentition. No stridor or edema. No drooling. NECK: Supple. No masses or thyromegaly. No adenopathy. Carotids 2+ without bruits. No JVD. BACK: Symmetrical without tenderness. CHEST: Respirations unlabored. Breath sounds clear and symmetrical. HEART: Regular rhythm. No murmur gallop or rub. ABDOMEN: Soft nontender without masses, organomegaly or rebound. Bowel sounds normally active. No bruits. GENITALIA: Deferred. EXTREMITIES: 2.5 cm area of fluctuance tenderness erythema and warmth mid pretibial region on the left. No calf tenderness. Cap refill less than 1.5 seconds. Dorsalis pedis and posterior tibial pulses 3+ and symmetrical. NEUROLOGICAL: GCS 15. Alert and oriented x3. Fluent speech. Cranial nerves II through XII intact. Sensorimotor and cerebellar normal. Normal tone. PSYCHIATRIC: Appropriate affect. Course - Vital Signs Vital signs: Temp Pulse Resp BP Pulse Ox 97.7 F 91 14 98/82 L 98 01/14/20 12:46 01/14/20 11:28 01/14/20 11:28 01/14/20 11:28 01/14/20 11:28 - Laboratory Result Diagrams: 01/14/20 13:10 01/14/20 13:10 Laboratory results interpreted by me: 01/14/20 01/14/20 13:10 13:10 RDW 14.8 H Creatinine 1.71 H Est GFR ( Amer) 42 L Est GFR (MDRD) Non-Af 35 L Procedures - Incision and Drainage Left Anterior Leg Time completed: 15:55 Type: Simple Anesthetic type: 1% Lidocaine mL's of anesthetic: 7 Blade size: 11 I&D procedure: Betadine prep applied, Sterile dressing applied Incision Method: Incision made by scalpel Amount/type of drainage: 3 cc yellow purulent material Discharge - Discharge Clinical Impression: Abscess of left lower extremity Condition: Stable Disposition: HOME, SELF-CARE Instructions: Abscess ([facility]) Additional Instructions: Continue current antibiotics. Tramadol as needed for pain. Apply warm towel to area of inflammation on leg for 15 minutes 3 times a day and after each treatment you can dry the area and then apply some Neosporin ointment and a Band-Aid. Follow-up with your primary care physician in 3 to 5 days. Return here as needed for new or worsening symptoms: Pain that is worsening or unimproved Uncontrolled vomiting High fever or shaking chills Overall worsening Prescriptions: Tramadol HCl [Ultram 50 mg Tablet] 50 mg PO Q4HP PRN #12 tab PRN Reason: Referrals: LYRIC RODRIGUEZ MD [ACTIVE STAFF] - Follow up as needed
[2020-01-14 16:26] VITALS: BP 100/84
== END 2020-01-14 16:24 | disposition home or self-care (01) ==
LOC: ER 11:20
DX: L02.416 Cutaneous abscess of left lower limb (principal); S80.862A Insect bite (nonvenomous), left lower leg, initial encounter; W57.XXXA Bitten or stung by nonvenomous insect and other nonvenomous arthropods, initial encounter; F17.200 Nicotine dependence, unspecified, uncomplicated; I10 Essential (primary) hypertension
CPT/HCPCS: 99283; 36415; 85025; 80053; 10060; J3490

== ENCOUNTER → 2020-05-24 | Outpatient (CLI) | payer MEDICAID ==
[2020-05-24 12:42] LABS: CHLAM PCR NOT DETECTED (NOT DETECT)
--- NOTE | 2020-05-24 13:07 | RADIOLOGY REPORT (SQ) ---
EXAM DESCRIPTION: ANKLE RIGHT COMPLETE IMAGES COMPLETED DATE/TIME: 05/24/2020 11:05 am REASON FOR STUDY: PAIN IN RIGHT ANKLE AND JOINTS OF RIGHT FOOT M25.571 PAIN IN RIGHT ANKLE AND JOIN TS OF RIGHT FOOT COMPARISON: None. NUMBER OF VIEWS: Three views. TECHNIQUE: AP, lateral, and oblique radiographic images acquired of the right ankle. LIMITATIONS: None. FINDINGS: MINERALIZATION: Normal. BONES: No acute fracture or dislocation. No worrisome bone lesions. JOINTS: No effusions. SOFT TISSUES: No soft tissue swelling. No foreign body. OTHER: No other significant finding. IMPRESSION: NEGATIVE STUDY OF THE RIGHT ANKLE. NO RADIOGRAPHIC EVIDENCE OF ACUTE INJURY. TECHNICAL DOCUMENTATION: JOB ID: [id number] 2010 [email or web address]- All Rights Reserved Reading location - IP/workstation name: [email or web address]
--- OUTSIDE RECORDS SUMMARY | 2020-05-25 18:29 | XMS REPORT ---
:1985 Author [facility] [place] [address] [place] [address] Care Team Providers Name Role Phone Amaya Madison Attending Clinician Unavailable Nelda Marley Attending Clinician Unavailable Sarah Mason Attending Clinician Unavailable ZENAIDA MCKINNEY Attending Clinician Unavailable Abby So Attending Clinician Unavailable ROX YEBOAH Attending Clinician Unavailable IGNACIO Attending Clinician Unavailable Allergies, Adverse Reactions, Alerts This patient has no known allergies or adverse reactions. Medications Ordered Filled Start Stop Current Ordering Indication Dosage Frequency Signature Comments Components Medication Medication Date Date Medication? Clinician (SIG) Name Name Docusate Yes Esther 100 Twice Per Sodium 100 04-12 Ignacio Morales Day Mg Capsule 00:00: 00 Oxycodone/A Yes Esther 1 Every 4 cetaminophe 04-12 Ignacio Morales Hours as n (Percocet 00:00: needed for 5/325 Mg*) 00 Mild Pain 5 Mg/325 Mg Tab Levothyroxi 2015- No Esther 100 Daily ne Sodium 04-12 Ignacio Morales Before (Synthroid* 00:00: 00:00 Breakfast ) 100 Mcg 00 :00 Tab Calcium 2015- No Esther 1000 Twice Per Carbonate 04-12 Ignacio Morales Day (Tums 00:00: 00:00 ([id number]=[id number] 00 :00 G Yuhaaviatam Calc)*) 500 Mg Chew Propranolol 2015- No 20 Twice Per Hcl 04-12 Day (Inderal*) 00:00: 00:00 20 Mg 00 :00 Tablet, 20 Mg Oral Methimazole 2015- No 20 Once Per (Tapazole*) 04-12 Day 10 Mg Tab, 00:00 20 Mg Oral :00 Problems Condition Condition Condition Status Onset Resolution Last Treatin g Comments Name Details Category Date Date Treatment Clinician Date Graves' Graves Problem Active disease disease 04-12 16:02: 00 Procedures Procedure Date / Time Performed Performing Clinician Devic e OFFICE/OUTPATIENT VISIT EST 2019-07-15 11:00:00 OFFICE/OUTPATIENT VISIT EST 2018 12:30:00 OFFICE/OUTPATIENT VISIT EST 2018-02-16 15:15:00 OFFICE/OUTPATIENT VISIT EST 2017-11-19 16:15:00 OFFICE/OUTPATIENT VISIT EST 2017-08-04 13:45:00 OFFICE/OUTPATIENT VISIT EST 2017-04-07 14:00:00 OFFICE/OUTPATIENT VISIT NEW 2017-03-14 14:45:00 [facility] 2016-04-12 00:00:00 ESTHER GARVIN Results Test Description Test Time Test Comments Text Results Atomic Results Result Comments CHLAMYDIA/N. GONORRHOEAE RNA, TMA, UROGENITAL 2020-03-04 07:08:0 0 Test Item Value Reference Range Comments CHLAMYDIA TRACHOMATIS RNA, TMA, UROGENITAL (test code = NOT DETECTED NOT DETECTED 92331-6) NEISSERIA GONORRHOEAE RNA, TMA, UROGENITAL (test code = NOT DETECTED NOT DETECTED 04671-0) CHLAMYDIA/N. GONORRHOEAE RNA, TMA, [id number] 15:09:00 Test Item Value Reference Range Comments NEISSERIA GONORRHOEAE RNA, TMA, UROGENITAL NOT DETECTED NOT D ETECTED (test code = 60682717) CHLAMYDIA TRACHOMATIS RNA, TMA, UROGENITAL NOT DETECTED NOT D ETECTED (test code = 44376946) RPR (DX) W/REFL TITER AND CONFIRMATORY [id number] 13:43:00NON-REACTIVEHIV 1/2 ANTIGEN/ANTIBODY,FOURTH GENERATION [id number] 13:43:00NON-REACTIVE BV/VAGINITIS PANEL DNA [id number] 13:43:00SEE NOTECHLAMYDIA/N. GONORRHOEAE RNA, TMA, [id number] 13:43:00 Test Item Value Reference Range Comments NEISSERIA GONORRHOEAE RNA, TMA, UROGENITAL NOT DETECTED NOT D ETECTED (test code = 61885473) CHLAMYDIA TRACHOMATIS RNA, TMA, UROGENITAL NOT DETECTED NOT D ETECTED (test code = 27553702) HEPATITIS PANEL, ACUTE W/REFLEX TO [id number] 13:43:00 Test Item Value Reference Range Comments SIGNAL TO CUT-OFF (test code = 54416514) 0.03 <1.00 HEPATITIS B CORE ANTIBODY (IGM) (test code = NON-REACTIVE NON -REACTIVE 22297499) HEPATITIS C ANTIBODY (test code = 13115186) NON-REACTIVE NON- REACTIVE HEPATITIS B SURFACE ANTIGEN (test code = NON-REACTIVE NON-ZARIA CTIVE 5196-1) HEPATITIS A IGM (test code = 10840270) NON-REACTIVE NON-REACT BENNY HIV 1/2 ANTIGEN/ANTIBODY,FOURTH GENERATION [id number] 10:39:00NON-REACTIVE HEPATITIS C AB W/REFL TO HCV RNA, QN, [id number] 10:39:00 Test Item Value Reference Range Comments SIGNAL TO CUT-OFF (test code = 30833689) 0.03 <1.00 HEPATITIS C ANTIBODY (test code = 25338038) NON-REACTIVE NON- REACTIVE CHLAMYDIA/N. GONORRHOEAE RNA, TMA, [id number] 10:39:00 Test Item Value Reference Range Comments CHLAMYDIA TRACHOMATIS RNA, TMA, UROGENITAL NOT DETECTED NOT D ETECTED (test code = 41754582) NEISSERIA GONORRHOEAE RNA, TMA, UROGENITAL NOT DETECTED NOT D ETECTED (test code = 73319926) RPR (DX) W/REFL TITER AND CONFIRMATORY [id number] 10:39:00NON-REACTIVET4, [id number] 15:47:[id number] 15:47:0053.50T3, [id number] 15:47:0063HIV 1/2 ANTIGEN/ANTIBODY,FOURTH GENERATION [id number] 10:25:00 NON-REACTIVERPR (DX) W/REFL TITER AND CONFIRMATORY [id number] 10:25:00 NON-REACTIVEHEPATITIS C AB W/REFL TO HCV RNA, QN, [id number] 10:25:00 Test Item Value Reference Range Comments SIGNAL TO CUT-OFF (test code = 57536322) 0.02 <1.00 HEPATITIS C ANTIBODY (test code = 39741201) NON-REACTIVE NON- REACTIVE BV/VAGINITIS PANEL DNA [id number] 15:51:00SEE NOTETHINPREP TIS PAP AND HPV mRNA E6/E7, CHLAMYDIA/N.[id number] 15:48:00 Test Item Value Reference Range Comments HPV mRNA E6/E7 (test code = Not Detected Not Detected 31473515) SOURCE: (test code = Cervix, Endocervix 66073090) NEISSERIA GONORRHOEAE RNA, NOT DETECTED NOT DETECTED TMA, UROGENITAL (test code = 60248221) INTERPRETATION/RESULT: (test Negative for intraepithelial code = 00416559) lesion or malignancy. CHLAMYDIA TRACHOMATIS RNA, NOT DETECTED NOT DETECTED TMA, UROGENITAL (test code = 59542190) CLINICAL INFORMATION: (test Normal exam code = 44109684) PREV. PAP: (test code = UNKNOWN 27021260) LMP: (test code = 93218111) 20180122 PREV. BX: (test code = UNKNOWN 58634924) ANEMIA PROFILE [id number] 15:14:00 Test Item Value Reference Range Comments ABSOLUTE MONOCYTES (test code = 91471814) 515 cells/uL 200-95 0 FOLATE, SERUM (test code = 79272107) 20.3 ng/mL RETICULOCYTE COUNT, AUTOMATED (test code = 1.0 % 59267148) RED BLOOD CELL COUNT (test code = 4.93 Million/uL 3.80-5.10 48450381) MPV (test code = 66877266) 9.6 fL 7.5-12.5 IRON, TOTAL (test code = 53481015) 137 mcg/dL 40-190 ABSOLUTE LYMPHOCYTES (test code = 2237 cells/uL 850-3900 78132655) EOSINOPHILS (test code = 17994521) 1.9 % VITAMIN B12 (test code = 70356459) 265 pg/mL 200-1100 RDW (test code = 03950023) 13.2 % 11.0-15.0 ABSOLUTE NEUTROPHILS (test code = 7508 cells/uL 6059-8050 20491068) ABSOLUTE BASOPHILS (test code = 74768719) 42 cells/uL 0-200 WHITE BLOOD CELL COUNT (test code = 10.5 Thousand/uL 3.8-10.8 82692996) HEMATOCRIT (test code = 10830330) 42.6 % 35.0-45.0 BASOPHILS (test code = 10129476) 0.4 % MCH (test code = 72924289) 29.0 pg 27.0-33.0 PLATELET COUNT (test code = 80124866) 211 Thousand/uL 140-400 FERRITIN (test code = 90897025) 37 ng/mL 10-154 MCV (test code = 68197065) 86.4 fL 80.0-100.0 HEMOGLOBIN (test code = 06642088) 14.3 g/dL 11.7-15.5 RETICULOCYTE, ABSOLUTE (test code = 23675 cells/uL 25908-08975 64051477) NEUTROPHILS (test code = 84972932) 71.5 % ABSOLUTE EOSINOPHILS (test code = 200 cells/uL 15-500 51656996) MONOCYTES (test code = 95343321) 4.9 % % SATURATION (test code = 24685930) 41 % (calc) 11-50 IRON BINDING CAPACITY (test code = 333 mcg/dL (calc) 250-450 36538472) LYMPHOCYTES (test code = 68371051) 21.3 % MCHC (test code = 16684618) 33.6 g/dL 32.0-36.0 CBC (H/H, RBC, INDICES, WBC, PLT)2017-11-20 08:51:00 Test Item Value Reference Range Comments MCH (test code = 28346530) 28.2 pg 27.0-33.0 PLATELET COUNT (test code = 25617725) 218 Thousand/uL 140-400 RDW (test code = 91322207) 13.4 % 11.0-15.0 WHITE BLOOD CELL COUNT (test code = 8.1 Thousand/uL 3.8-10.8 92305062) MPV (test code = 43793358) 10.2 fL 7.5-12.5 HEMATOCRIT (test code = 31341590) 45.5 % 35.0-45.0 HEMOGLOBIN (test code = 92086291) 14.8 g/dL 11.7-15.5 MCHC (test code = 32640668) 32.5 g/dL 32.0-36.0 RED BLOOD CELL COUNT (test code = 66092155) 5.25 Million/uL 3.80 -5.10 MCV (test code = 31853528) 86.7 fL 80.0-100.0 HEPATIC FUNCTION [id number] 08:51:00 Test Item Value Reference Range Comments PROTEIN, TOTAL (test code = 82089785) 7.2 g/dL 6.1-8.1 GLOBULIN (test code = 70770073) 2.8 g/dL (calc) 1.9-3.7 BILIRUBIN, TOTAL (test code = 61210232) 0.4 mg/dL 0.2-1.2 AST (test code = 98777816) 14 U/L 10-30 ALT (test code = 67684076) 7 U/L 6-29 BILIRUBIN, DIRECT (test code = 53435339) 0.1 mg/dL < OR = 0.2 ALBUMIN/GLOBULIN RATIO (test code = 1.6 (calc) 1.0-2.5 70366608) ALBUMIN (test code = 08109162) 4.4 g/dL 3.6-5.1 BILIRUBIN, INDIRECT (test code = 21918198) 0.3 mg/dL (calc) 0.2- 1.2 ALKALINE PHOSPHATASE (test code = 04762897) 51 U/L 33-1 15 COMPREHENSIVE METABOLIC [id number] 08:51:00 Test Item Value Reference Range Comments GLOBULIN (test code = 00302839) 2.8 g/dL (calc) 1.9-3.7 ALKALINE PHOSPHATASE (test code = 38922030) 51 U/L 33-1 15 BUN/CREATININE RATIO (test code = 23582565) 11 (calc) 6-22 GLUCOSE (test code = 55044129) 82 mg/dL 65-99 PROTEIN, TOTAL (test code = 87366178) 7.2 g/dL 6.1-8.1 eGFR (test code = 52 mL/min/1.73m2 > OR = 60 27194066) ALBUMIN/GLOBULIN RATIO (test code = 1.6 (calc) 1.0-2.5 41902021) ALT (test code = 40055239) 7 U/L 6-29 CREATININE (test code = 63978859) 1.55 mg/dL 0.50-1.10 AST (test code = 45129093) 14 U/L 10-30 UREA NITROGEN (BUN) (test code = 82291556) 17 mg/dL 7-25 CALCIUM (test code = 77409494) 9.3 mg/dL 8.6-10.2 eGFR NON-AFR. CHILEAN (test code = 44 mL/min/1.73m2 > OR = 60 10589728) BILIRUBIN, TOTAL (test code = 94836512) 0.4 mg/dL 0.2-1.2 CARBON DIOXIDE (test code = 38700386) 27 mmol/L 20-31 POTASSIUM (test code = 98977836) 4.6 mmol/L 3.5-5.3 CHLORIDE (test code = 54091729) 107 mmol/L 98-110 SODIUM (test code = 07606706) 139 mmol/L 135-146 ALBUMIN (test code = 60523400) 4.4 g/dL 3.6-5.1 [id number] 14:37:00 Test Item Value Reference Range Comments TSH (test code = 830101) 0.34 mIU/L T3, [id number] 14:37:00 Test Item Value Reference Range Comments T3, Free (test code = 619585) 3.7 pg/mL 2.3-4.2 [id number] 14:37:00 Test Item Value Reference Range Comments LH (test code = 394299) 7.2 mIU/mL Testosterone, Total, LC/MS/[id number] 14:37:00 Test Item Value Reference Range Comments Testosterone, Total, LC-MS-MS (test code = 568589) 18 ng/dL 2-45 T4 Free (FT4)2017-04-07 14:37:00 Test Item Value Reference Range Comments Free T4 (test code = 719168) 0.9 ng/dL 0.8-1.8 FSH (Follicle Stimulating Hormone)2017-04-07 14:37:00 Test Item Value Reference Range Comments FSH (test code = 290297) 9.7 mIU/mL Progesterone, [id number] 14:37:00 Test Item Value Reference Range Comments Progesterone (test code = 890658) 0.9 ng/mL [id number] 14:37:00 Test Item Value Reference Range Comments Estradiol (test code = 401189) 50 pg/mL Serum or plasma calcium measurement (mass/volume)2016-04-13 09:09:00 Test Item Value Reference Range Comments Serum or plasma calcium measurement (mass/volume) 8.3 8.4-10.2 (test code = 57212-4) Phosphorus [id number] 09:09:00 Test Item Value Reference Range Comments Phosphorus measurement (test code = 13373-2) 3.3 2.5 -4.5 Magnesium [id number] 09:09:00 Test Item Value Reference Range Comments Magnesium measurement (test code = 82759-1) 1.7 1.6- 2.3 Serum or plasma albumin measurement (mass/volume)2016-04-12 19:10:00 Test Item Value Reference Range Comments Serum or plasma albumin measurement (mass/volume) 3.1 3.5-5.0 (test code = 1751-7) Serum or plasma urea nitrogen measurement (mass/volume)2016-04-03 14:45:00 Test Item Value Reference Range Comments Serum or plasma urea nitrogen measurement 12 7-17 (mass/volume) (test code = 3094-0) Serum or plasma creatinine measurement (moles/volume)2016-04-03 14:45:00 Test Item Value Reference Range Comments Serum or plasma creatinine measurement (moles/volume) 1.24 0.52-1.04 (test code = 86153-6) Assessments Condition Name Status Diagnosis Date Treating Clinici an Abnormal weight gain Active Hypothyroidism, unspecified Active Disorder of kidney and ureter, unspecified Active Bipolar disorder, unspecified Active Cough Active Acute bronchitis due to other specified Active organisms Oth bacterial agents as the cause of Active diseases classd elswhr Body mass index (BMI) 25.0-25.9, adult Active Encounter for screening for malignant Active neoplasm of cervix Encntr screen for infections w sexl mode of Active transmiss Other specified noninflammatory disorders of Active vagina Body mass index (BMI) 25.0-25.9, adult Active Dermatitis, unspecified Active Nonscarring hair loss, unspecified Active Other fatigue Active Essential (primary) hypertension Active Other forms of stomatitis Active Pruritus, unspecified Active Unspecified strabismus Active Hypothyroidism, unspecified Active Hypothyroidism, unspecified Active Atrophy of breast Active Endocrine disorder, unspecified Active Body mass index (BMI) 26.0-26.9, adult Active Insomnia, unspecified Active Disorder of kidney and ureter, unspecified Active Hypothyroidism, unspecified Active Bipolar disorder, unspecified Active Encounters Start End Encounter Admission Attending Care Care Encounter Date/Time Date/Time Type Type Clinicians Facility Department ID 2019-07-15 2019-07-15 Outpatient Wittler, [facility] E [id number] 11:00:00 11:00:00 Amaya Children [id number] s [id number] and [id number] [facility], 2018 2018 Outpatient Donell [facility] CB [id number] 12:30:00 12:30:00 Nelda Children [id number] s [id number] and [id number] [facility] [place] 2018-02-16 2018-02-16 Outpatient Marlon [facility] 5 [id number] 15:15:00 15:15:00 Stormy Children [id number] s [id number] and [id number] [facility] [place] 2017-11-19 2017-11-19 Outpatient Marlon [facility] 6 [id number] 16:15:00 16:15:00 Stormy Children [id number] s [id number] and [id number] [facility] [place] 2017-08-22 2017-08-22 Outpatient YANELI MCKINNEY, [facility] [id number] 09:50:00 09:50:00 ZENAIDA 93 2017-08-04 2017-08-04 Outpatient Saray [facility] E5 [id number] 13:45:00 13:45:00 Abby Children [id number] s [id number] and [id number] [facility], [place] 2017-04-07 2017-04-07 Outpatient Saray [facility] 05 [id number] 14:00:00 14:00:00 Abby Children [id number] s [id number] and [id number] [facility] [place] 2017-03-14 2017-03-[facility] [id number] 14:45:00 14:45:00 Abby Children [id number] s [id number] and [id number] [facility] [place] 2016-10-18 2016-10-18 Outpatient YANELI YEBOAH, [facility] [id number] 10:55:00 10:55:00 ROX Baig 2016-04-12 2016-04-13 Outpatient IGNACIO [facility] [id number] 00:02:00 12:10:00 ESTHER 26 Immunizations Ordered Immunization Filled Immunization Date Status Commen ts Refusal Reason Name Name Vaccination Unknown Completed Payers Payer Name Policy Type Policy Number Effective Date Expiration D ate Social History This patient has no known social history. Vital Signs Vital Name Observation Time Observation Value Comments WEIGHT 2016-04-12 12:00:00 85.2 kg HEIGHT 2016-04-12 12:00:00 162.446496 cm WEIGHT 2016-04-12 00:02:00 85.2 kg HEIGHT 2016-04-12 00:02:00 162.015109 cm
== END ==
LOC: OD 10:41
PROVIDERS: ATTEND Nurse Practitioner Family
DX: R30.0 Dysuria (principal); M25.571 Pain in right ankle and joints of right foot; Z11.3 Encounter for screening for infections with a predominantly sexual mode of transmission
CPT/HCPCS: 87491; 87591

== ENCOUNTER 2020-07-18 15:11 | Emergency (ER) | payer MEDICAID ==
[2020-07-18 16:54] VITALS: BP 113/87
--- NOTE | 2020-07-18 16:57 | ER Document Report ---
HPI - HPI Time Seen by Provider: 07/18/20 16:45 Pain Level: 3 Notes: 35-year-old female presents to the emergency room today for evaluation of a scar to her right calf from a bug bite over 6 months ago that she says has taken a long time to heal. She denies any fevers or chills. States recently she has been "picking at it", no drainage. Patient never had site lanced or evaluated by a medical provider. She states she has a similar scar on her other leg but that was drained and it is flat now, she is concerned because this keloid is not flat. Patient reports that over 6 months ago she rolled her ankle, she has had follow-up with her primary care provider. She would like to know if she can get a referral to an staffing specialist because she does not want to go back to the primary care due to the Covid pandemic. denies any new trauma. Able to bear full weight. Denies any numbness or tingling down bilateral lower extremities. Denies fevers, chills, chest pain,palpitations, shortness of breath, dyspnea, nausea, vomiting, diarrhea, abdominal pain, hematuria,blurred vision, double vision, loss of vision, speech changes, LH, dizziness, syncope, headaches, wheezing, ST, URI, neck pain, weakness, bowel or bladder dysfunction, saddle anesthesia, numbness or tingling in bilateral upper or lower extremities equally, muscle paralysis, weakness in bilateral upper or lower extremities equally. - CONSTITUTIONAL Constitutional: DENIES: Fever, Chills - REPRODUCTIVE Reproductive: DENIES: : Past Medical History - General Information source: Patient - Social History Smoking Status: Current Every Day Smoker Chew tobacco use (# tins/day): No Frequency of alcohol use: None Drug Abuse: None Family History: Reviewed & Not Pertinent - Past Medical History Cardiac Medical History: Reports: Hx Hypertension Denies: Hx Heart Attack Pulmonary Medical History: Reports: Hx Bronchitis - possibly Denies: Hx Asthma, Hx COPD, Hx Pneumonia Neurological Medical History: Denies: Hx Seizures Endocrine Medical History: Reports: Hx Hyperthyroidism Renal/ Medical History: Reports: Hx Renal Insufficiency. Denies: Hx Peritoneal Dialysis Musculoskeletal Medical History: Denies Hx Arthritis, Reports Hx Musculoskeletal Trauma Psychiatric Medical History: Reports: Hx Anxiety, Hx Bipolar Disorder, Hx Depression Past Surgical History: Reports: Hx Section, Hx Neurologic Surgery, Hx Thyroid Surgery - Immunizations Hx Diphtheria, Pertussis, Tetanus Vaccination: Yes - 2007 Vertical Provider Document - CONSTITUTIONAL Agree With Documented VS: Yes Exam Limitations: No Limitations General Appearance: WD/WN Notes: MEDICATIONS: I agree with the patient medications as charted by the RN. ALLERGIES: I agree with the allergies as charted by the RN. PAST MEDICAL HISTORY/PAST SURGICAL HISTORY: Reviewed and agree as charted by RN. SOCIAL HISTORY: Reviewed and agree as charted by RN. FAMILY HISTORY: No significant familial comorbid conditions directly related to patient complaint EXAM: Reviewed vital signs as charted by RN. PHYSICAL EXAMINATION: reviewed vital signs by RN GENERAL: Well-appearing, well-nourished and in no acute distress. HEAD: Atraumatic, normocephalic. EYES: Pupils equal round and reactive to light, extraocular movements intact, conjunctiva are normal. ENT: Nares patent, oropharynx clear without exudates. Moist mucous membranes. NECK: Normal range of motion, supple without lymphadenopathy LUNGS: Breath sounds clear to auscultation bilaterally and equal. No wheezes rales or rhonchi. HEART: Regular rate and rhythm without murmurs ABDOMEN: Soft, nontender, nondistended abdomen. No guarding, no rebound. No masses appreciated. Female : deferred Musculoskeletal: Normal range of motion, no pitting or edema. No cyanosis. right ankle without swelling, tenderness to ankle. no pain with eversion, inversion. squeeze test negative. dtr +2 BLE. Limited APROM. distal pulses + 2 BLE equally. Full motor and sensory function of bilateral lower extremities. No noted open wounds or abrasion. Normal gait. No vascular compromise. Peroneal nerve is intact with strong eversion and plantar flexion. Negative anterior drawer test. muscle strength 5/5 in BLE equally. NEUROLOGICAL: Cranial nerves grossly intact. Normal speech, normal gait. Normal sensory, motor exams PSYCH: Normal mood, normal affect. SKIN: Warm, Dry, normal turgor, no rashes or lesions noted. - INFECTION CONTROL TRAVEL OUTSIDE OF THE [place] IN LAST 30 DAYS: No Course - Re-evaluation Re-evalutation: 07/18/20 17:09 Afebrile vital stable no distress. Nurses notes reviewed. Discussed with patient that she has a keloid from the bug bite from over 6 months ago, advised her to not pick at it although she has been so I did prescribe her Bactroban ointment to apply 3 times a day for the next few days to prevent infection. Discussed with patient that she does need to have proper shoe inserts, stretching, exercise helps with pain. Discussed having a conversation with her primary care doctor about physical therapy for her ankle as well as I did give patient a referral to staffing specialist for her to follow-up with. All questions and concerns were answered. After performing a Medical Screening Examination, I estimate there is LOW risk for OPEN FRACTURE, COMPARTMENT SYNDROME, DEEP VENOUS THROMBOSIS, ACUTE TENDON RUPTURE, or NEUROVASCULAR INJURY thus I consider the discharge disposition reasonable. I have reevaluated this patient multiple times and no significant life threatening changes are noted. The patient and I have discussed the diagnosis and risks, and we agree with discharging home to closely follow-up with their primary doctor or the referral orthopedist with the understanding that symptoms and presentations can change. We also discussed returning to the Emergency Department immediately if new or worsening symptoms occur. We have discussed the symptoms which are most concerning (e.g., changing or worsening pain, numbness, weakness) that necessitate immediate return - Vital Signs Vital signs: Temp Pulse Resp BP Pulse Ox 97.9 F 104 H 16 118/87 H 100 07/18/20 15:51 07/18/20 15:51 07/18/20 15:51 07/18/20 15:51 07/18/20 15:51 - Laboratory Results Critical Laboratory Results Reviewed: No Critical Results - Radiology Results Critical Radiology Results Reviewed: No Critical Results Discharge - Discharge Clinical Impression: Keloid of skin, Chronic pain of right ankle Condition: Stable Disposition: HOME, SELF-CARE Additional Instructions: You have an keloid from a previous bug bite back in the summer, it can take time to heal. Please keep it out of direct sunlight, wear sunblock when out in the sun, you can apply Bactroban because you have been squeezing at it, it is advised that you do not squeeze or manipulate the scar. You can use the Bactroban 3 times a day for the next few days. You complained of chronic right ankle pain, you requested a referral to the staffing specialist, I did give you a referral. Please give them a call to set up an appointment. You had x- rays back in May 2020 that were normal. You have not had any injury since then. Apply heat 20 minutes on 20 minutes off several times a day, wear an Nathanael bandage around your ankle. Stretching as well as strengthening the muscles of the lumbar area will help with stability. You can alternate between Tylenol and ibuprofen for pain control. Place discussed with your primary care provider to obtain a physical therapy referral which may be helpful for your ankle pain. Return immediately for any new or worsening symptoms. Follow up with primary care provider, call tomorrow to make followup appointment. Prescriptions: Mupirocin [Bactroban 2% Ointment 22 gm] 1 applic TP TID #1 tube Referrals: RAYSHAWN PANG FNP [Primary Care Provider] - Follow up as needed ASHLEY NICHOLS DO [ACTIVE STAFF] - Follow up as needed
== END 2020-07-18 16:51 | disposition home or self-care (01) ==
LOC: ER 15:11
DX: L91.0 Hypertrophic scar (principal); G89.29 Other chronic pain; M25.571 Pain in right ankle and joints of right foot; I10 Essential (primary) hypertension; F17.200 Nicotine dependence, unspecified, uncomplicated
CPT/HCPCS: 99283

== ENCOUNTER 2020-07-24 11:55 | Emergency (ER) | payer MEDICAID ==
[2020-07-24 12:32] VITALS: BP 136/77
--- NOTE | 2020-07-24 13:09 | ER Document Report ---
ED Extremity Problem, Lower - General Stated Complaint: ANKLE PAIN Time Seen by Provider: 07/24/20 13:03 Primary Care Provider: RAYSHAWN PANG FNP [Primary Care Provider] - Follow up as needed Notes: CHIEF COMPLAINT: Right ankle injury 4 months ago HPI: 35-year-old female presenting for pain to the right ankle over the last 4 months. States she was skating and was run into by another skater rolling and injuring the right ankle. States she saw her PCP 3 months ago they x-rayed the ankle and the bones were fine. She states that she is still having pain when she walks and she "walks everywhere". Is not taking any medications for pain. Has not been back to her primary care provider for reevaluation but had an appointment today that she missed with her primary care provider Juve presents to the emergency department for evaluation ROS: See HPI - all other systems were reviewed and are otherwise negative Constitutional: no fever Integumentary: no rash Allergy: no hives Musculoskeletal: + extremity pain or swelling Neurological: no numbness/tingling, no weakness MEDICATIONS: I agree with the patient medications as charted by the RN. ALLERGIES: I agree with the allergies as charted by the RN. PAST MEDICAL HISTORY/PAST SURGICAL HISTORY: Reviewed and agree as charted by RN. SOCIAL HISTORY: Reviewed and agree as charted by RN. FAMILY HISTORY: No significant familial comorbid conditions directly related to patient complaint EXAM: Reviewed vital signs as charted by RN. CONSTITUTIONAL: Alert and oriented and responds appropriately to questions. Well-appearing; well-nourished HEAD: Normocephalic; atraumatic EYES: Conjunctivae clear, sclerae non-icteric ENT: normal nose; no rhinorrhea; moist mucous membranes NECK: Supple without meningismus CARD: symmetric distal pulses RESP: Normal chest excursion without splinting or tachypnea ABD/GI: non-distended BACK: The back appears normal EXT: Normal ROM in all joints; no cyanosis, no effusions, no edema. There is no soft tissue swelling or bruising to the right ankle. There is no tenderness to the medial or lateral malleolus. There is mild tenderness between the Achilles and the lateral malleolus on palpation. No tenderness over the tarsals or metatarsals of the right foot. Sensation intact in the toes with capillary refill less than 3 seconds. Patient gait appears normal SKIN: Normal color for age and race; warm; dry; good turgor; no acute lesions noted NEURO: Moves all extremities equally; Motor and sensory function intact PSYCH: The patient's mood and manner are appropriate. Grooming and personal hygiene are appropriate. MDM: 35-year-old female with an injury from 4 months ago that she states was x- rayed by her PCP with no fractures. Essentially it sounds as if she is requesting a referral to orthopedics which I will provide for her. I did offer x-ray imaging today which she declines. She has apparently declined physical therapy through her PCP. Had an appointment today but apparently missed the bus so could not go. She does indicate that she has Medicaid she may need a primary care referral to orthopedics and she is to call her primary care provider today. I will place her on Voltaren once daily as she reports she has a history of some kidney issues and she may take this as needed. TRAVEL OUTSIDE OF THE [place] IN LAST 30 DAYS: No - Related Data Allergies/Adverse Reactions: No Known Allergies Allergy (Verified 01/14/20 12:46) Past Medical History - Social History Smoking Status: Unknown if Ever Smoked Family History: Reviewed & Not Pertinent - Past Medical History Cardiac Medical History: Reports: Hx Hypertension Denies: Hx Heart Attack Pulmonary Medical History: Reports: Hx Bronchitis - possibly Denies: Hx Asthma, Hx COPD, Hx Pneumonia Neurological Medical History: Denies: Hx Seizures Endocrine Medical History: Reports: Hx Hyperthyroidism Renal/ Medical History: Reports: Hx Renal Insufficiency. Denies: Hx Peritoneal Dialysis Musculoskeletal Medical History: Denies Hx Arthritis, Reports Hx Musculoskeletal Trauma Psychiatric Medical History: Reports: Hx Anxiety, Hx Bipolar Disorder, Hx Depression Past Surgical History: Reports: Hx Section, Hx Neurologic Surgery, Hx Thyroid Surgery - Immunizations Hx Diphtheria, Pertussis, Tetanus Vaccination: Yes - 2007 Physical Exam - Vital signs Vitals: Temp Pulse Resp BP Pulse Ox 98.3 F 79 16 136/77 H 100 07/24/20 12:30 07/24/20 12:30 07/24/20 12:30 07/24/20 12:30 07/24/20 12:30 Course - Vital Signs Vital signs: Temp Pulse Resp BP Pulse Ox 98.3 F 79 16 136/77 H 100 07/24/20 12:30 07/24/20 12:30 07/24/20 12:30 07/24/20 12:30 07/24/20 12:30 - Laboratory Results Critical Laboratory Results Reviewed: No Critical Results - Radiology Results Critical Radiology Results Reviewed: No Critical Results Discharge - Discharge Clinical Impression: Ankle pain, chronic Qualifiers: Laterality: right Qualified Code(s): M25.571 - Pain in right ankle and joints of right foot; G89.29 - Other chronic pain Condition: Stable Disposition: HOME, SELF-CARE Additional Instructions: Follow-up with orthopedics for further evaluation and treatment call for appointment. You may need your primary care provider to refer you to orthopedics given your insurance status. Take Voltaren daily for pain as needed Prescriptions: Diclofenac Sodium [Voltaren 50 Mg Tablet.] 50 mg PO DAILY #15 tablet. Referrals: RAYSHAWN PANG FNP [Primary Care Provider] - Follow up as needed ASHLEY NICHOLS DO [ACTIVE STAFF] - Follow up as needed
== END 2020-07-24 13:18 | disposition home or self-care (01) ==
LOC: ER 11:55
DX: M25.571 Pain in right ankle and joints of right foot (principal); G89.29 Other chronic pain; I10 Essential (primary) hypertension
CPT/HCPCS: 99283